=== PATIENT | female | born 1975 | race Two or more races ===

== ENCOUNTER 2022-06-11 13:28 | Emergency (ER) | payer SELFPAY ==
[2022-06-11] MEDS ORDERED: Sodium Chloride 0.9% 2.5 ML Syringe FLUSH PRN (13:37)
[2022-06-11] MEDS ORDERED: Sodium Chloride 0.9% 10 ML Syringe FLUSH PRN (13:37)
[2022-06-11] MEDS ORDERED: LORazepam 2 MG/ML SDV IVPUSH ONE ×2 (13:39→14:26)
[2022-06-11 14:55] LABS: BLOOD UREA NITROGEN,BUN 20 mg/dL (7.0-18.0); CARBON DIOXIDE,CO2 24.3 mmol/L (21.0-32.0); CHLORIDE,CL 106 mmol/L (98-107); GLUCOSE RANDOM 94 mg/dL (74-106); LIPASE 179 U/L (73-393); SODIUM,NA 142 mmol/L (136-145)
[2022-06-11 15:04] LABS: ESTIMATED GFR 91 mL/min (>60)
[2022-06-11] MEDS ORDERED: Iopamidol 755 Mg/ML 100 ML Bottle IVPUSH ONE (17:17)
== END 2022-06-11 19:05 | disposition home or self-care (01) ==
LOC: MW.ED 13:28
DX: R41.82 Altered mental status, unspecified (principal); F48.8 Other specified nonpsychotic mental disorders; Z20.822 Contact with and (suspected) exposure to COVID-19
CPT/HCPCS: 36415; 70450; 71045; 74177; 80053; 80305; 80307; 81001; 83605; 83690; 83880; 84443; 84484; 84703; 85025; 85610; 87635; 93005; 96374; 96376; 99285; J2060; J3490; Q9967; U0002